=== PATIENT | female | born 1975 | race Hispanic/Latino ===

== ENCOUNTER 2021-09-03 13:08 | Emergency (ER) | payer OTHER, SELFPAY ==
[2021-09-03 13:29] LABS: Absolute Lymphocytes (CBC) 1.8 K/uL (0.7-4.9); Hematocrit 45.3 % (36.0-45.0); Lymphocytes % 25.3 % (15.3-44.8); MPV 9.8 fL (7.6-11.3); RBC Red Blood Cell Count 5.09 M/uL (3.86-4.86)
[2021-09-03 13:48] LABS: ALT/SGPT 188 U/L (12-78); Albumin 4.1 g/dL (3.4-5.0); Alkaline Phosphatase 155 U/L (45-117); BUN Blood Urea Nitrogen 14 mg/dL (7-18); Bicarbonate 28 mmol/L (21-32); Bilirubin Total 0.4 mg/dL (0.2-1.0); Glucose Level 222 mg/dL (74-106); Protein, Total 8.7 g/dL (6.4-8.2); Sodium Level 137 mmol/L (136-145)
[2021-09-03 13:49] LABS: AST/SGOT 68 U/L (15-37); Bilirubin Direct < 0.1 mg/dL (0-0.2); Potassium 3.7 mmol/L (3.5-5.1); Troponin High Sensitivity < 3.0 pg/mL (<58.9)
--- NOTE | 2021-09-03 14:05 | EDPHYS ---
Physician Documentation [facility] Name: Raysa Westbrook Age: 46 yrs Sex: Female : 1975 Arrival Date: 09/03/2021 Time: 13:11 Bed 15 Private MD: ED Physician Eli Mccann HPI: 09/03 14:01 This 46 yrs old Female presents to ER via Ambulatory with complaints of Chest ma2 Pain. 14:01 Patient has chest wall pain on breathing right-sided for 1 week is been constant worse ma2 when she takes deep breath cough or twister chest, patient denies heart issues, denies vomiting fever or diarrhea, no abdominal pain. Historical: - Allergies: 13:17 No Known Allergies; ph - Home Meds: 13:25 amlodipine 10 mg tab 1 tab once daily [Active]; hydrochlorothiazide 25 mg Oral tab 1 ww tab once daily [Active]; - PMHx: 13:25 Hypertensive disorder; ww - PSHx: 13:25 section; ww - Immunization history:: Adult Immunizations up to date. - Social history:: Smoking status: Patient denies any tobacco usage or history of. - Family history:: not pertinent. ROS: 14:01 Constitutional: Negative for fever, chills, and weight loss. ma2 14:01 All other systems are negative. Exam: 14:01 Constitutional: This is a well developed, well nourished patient who is awake, alert, ma2 and in no acute distress. Head/Face: Normocephalic, atraumatic. Eyes: Pupils equal round and reactive to light, extra-ocular motions intact. Lids and lashes normal. Conjunctiva and sclera are non-icteric and not injected. Cornea within normal limits. Periorbital areas with no swelling, redness, or edema. ENT: Nares patent. No nasal discharge, no septal abnormalities noted. Tympanic membranes are normal and external auditory canals are clear. Oropharynx with no redness, swelling, or masses, exudates, or evidence of obstruction, uvula midline. Mucous membranes moist. Neck: Trachea midline, no thyromegaly or masses palpated, and no cervical lymphadenopathy. Supple, full range of motion without nuchal rigidity, or vertebral point tenderness. No Meningismus. Chest/axilla: Right-sided chest wall pain reproducible on exam, otherwise normal chest wall appearance and motion. Nontender with no deformity. No lesions are appreciated. Cardiovascular: Regular rate and rhythm with a normal S1 and S2. No gallops, murmurs, or rubs. Normal PMI, no JVD. No pulse deficits. Respiratory: Lungs have equal breath sounds bilaterally, clear to auscultation and percussion. No rales, rhonchi or wheezes noted. No increased work of breathing, no retractions or nasal flaring. Abdomen/GI: Soft, non-tender, with normal bowel sounds. No distension or tympany. No guarding or rebound. No evidence of tenderness throughout. Back: No spinal tenderness. No costovertebral tenderness. Full range of motion. Skin: Warm, dry with normal turgor. Normal color with no rashes, no lesions, and no evidence of cellulitis. MS/ Extremity: Pulses equal, no cyanosis. Neurovascular intact. Full, normal range of motion. Neuro: Awake and alert, GCS 15, oriented to person, place, time, and situation. Cranial nerves II-XII grossly intact. Motor strength 5/5 in all extremities. Sensory grossly intact. Cerebellar exam normal. Normal gait. Vital Signs: 13:23 BP 165 / 108; Pulse 127; Resp 28; Pulse Ox 99% on R/A; Weight 62.6 kg; Height 5 ft. 0 ww in. (152.40 cm); Pain 2/10; 14:13 BP 155 / 99; Pulse 101; Resp 18; Pulse Ox 96% on R/A; ph 15:47 BP 111 / 79; Pulse 96; Resp 16; Pulse Ox 97% on R/A; ph 17:00 BP 142 / 87; Pulse 98; Resp 18; Pulse Ox 99% on R/A; ph 18:00 BP 146 / 95; Pulse 101; Resp 16; Temp 97.9; Pulse Ox 100% on R/A; ph 13:23 Body Mass Index 26.95 (62.60 kg, 152.40 cm) ww MDM: 13:18 Patient medically screened. ma2 14:01 Differential diagnosis: esophagitis, gastritis, gastroesophageal reflux disease (GERD), ma2 pneumothorax. 14:04 Data reviewed: vital signs, nurses notes. Counseling: I had a detailed discussion with ma2 the patient and/or guardian regarding: the historical points, exam findings, and any diagnostic results supporting the discharge/admit diagnosis, the presence of at least one elevated blood pressure reading (>120/80) during this emergency department visit, the need for outpatient follow up. 09/03 13:19 Order name: Basic Metabolic Panel; Complete Time: 14:10 09/03 13:19 Order name: CBC with Diff; Complete Time: 14:10 09/03 13:19 Order name: LFT's; Complete Time: 14:10 09/03 13:19 Order name: Magnesium; Complete Time: 14:10 09/03 13:19 Order name: Troponin HS; Complete Time: 14:10 09/03 13:19 Order name: XRAY Chest (1 view); Complete Time: 14:57 09/03 13:19 Order name: EKG; Complete Time: 13:20 09/03 13:19 Order name: Cardiac monitoring; Complete Time: 13:21 09/03 13:19 Order name: EKG - Nurse/Tech; Complete Time: 13:21 09/03 13:19 Order name: IV Saline Lock; Complete Time: 13:31 09/03 13:19 Order name: Labs collected and sent; Complete Time: 13:21 09/03 13:19 Order name: O2 Per Protocol; Complete Time: 13:21 09/03 13:19 Order name: O2 Sat Monitoring; Complete Time: 13:21 ma Administered Medications: 14:21 Drug: Ativan (LORazepam) 1 mg Route: IVP; Site: right antecubital; ph 15:30 Follow up: Response: No adverse reaction ph Disposition Summary: 09/03/21 14:04 Discharge Ordered Location: Home ma2 Condition: Stable ma2 Diagnosis - Chest pain on breathing ma2 Followup: ma2 - With: Private Physician - When: Tomorrow - Reason: If symptoms return, Continuance of care Discharge Instructions: - Discharge Summary Sheet ma2 - Chest Wall Pain ma2 Forms: - Medication Reconciliation Form ma2 - Thank You Letter ma2 - Work release form ph - Antibiotic Education ma2 - Prescription Opioid Use ma2 Prescriptions: - Diclofenac Sodium 75 mg Oral Tablet Sustained Release - take 1 tablet by ORAL route 2 times per day; 30 tablet; Refills: 0, Product ma2 Selection Permitted Signatures: Dispatcher [employer] Early, RN RN Eli Mccann MD MD ma2 Gay Butler RN RN
--- NOTE | 2021-09-03 14:05 | ER ---
Nurse's Notes [facility] Name: Raysa Westbrook Age: 46 yrs Sex: Female : 1975 Arrival Date: 09/03/2021 Time: 13:11 Bed 15 Private MD: Diagnosis: Chest pain on breathing Presentation: 09/03 13:23 Chief complaint: Patient states: Saw her physician on Saturday for her high blood ww pressure and gave her some medicine. Today she started having chest pain and yesterday just felt ill. Coronavirus screen: Vaccine status: Patient reports receiving the 2nd dose of the covid vaccine. Client denies travel out of the [place] in the last 14 days. Ebola Screen: Patient denies travel to an Ebola-affected area in the 21 days before illness onset. Initial Sepsis Screen: Does the patient meet any 2 criteria? No. Patient's initial sepsis screen is negative. Does the patient have a suspected source of infection? No. Patient's initial sepsis screen is negative. Risk Assessment: Do you want to hurt yourself or someone else? Patient reports no desire to harm self or others. Onset of symptoms was September 03, 2021. 13:23 Method Of Arrival: Ambulatory ww 13:23 Acuity: FIDEL 3 ww Triage Assessment: 13:25 General: Appears well developed, well nourished, Behavior is anxious, crying. Pain: ww Complains of pain in xiphoid area and mid-sternal area. Neuro: Level of Consciousness is awake, alert, obeys commands, Oriented to person, place, time, situation, Moves all extremities. Gait is steady, Speech is normal. Cardiovascular: Capillary refill < 3 seconds Patient's skin is warm and dry. Rhythm is sinus tachycardia Chest pain quality is pressure, is located in substernal area. Respiratory: Airway is patent Respiratory effort is even, unlabored, Respiratory pattern is regular, symmetrical. GI: No signs and/or symptoms were reported involving the gastrointestinal system. Derm: Skin is intact, is healthy with good turgor. Historical: - Allergies: 13:17 No Known Allergies; ph - Home Meds: 13:25 amlodipine 10 mg tab 1 tab once daily [Active]; hydrochlorothiazide 25 mg Oral tab 1 ww tab once daily [Active]; - PMHx: 13:25 Hypertensive disorder; ww - PSHx: 13:25 section; ww - Immunization history:: Adult Immunizations up to date. - Social history:: Smoking status: Patient denies any tobacco usage or history of. - Family history:: not pertinent. Screenin:17 Abuse screen: Denies threats or abuse. Denies injuries from another. Nutritional ph screening: No deficits noted. Tuberculosis screening: No symptoms or risk factors identified. Fall Risk None identified. Assessment: 13:29 General: Appears in no apparent distress. well groomed, Behavior is cooperative, ph appropriate for age, anxious, crying, Reports fatigue for 1-2 days, Denies fever, chills. Pain: Complains of pain in mid-sternal area Pain does not radiate. Pain began 2-3 days ago. Neuro: Level of Consciousness is awake, alert, obeys commands, Oriented to person, place, time, situation, Reports dizziness. Cardiovascular: Reports chest pain, fatigue, lightheadedness, shortness of breath, Capillary refill < 3 seconds in bilateral fingers Patient's skin is warm and dry. Rhythm is sinus tachycardia Chest pain is located in substernal area. Respiratory: Airway is patent Respiratory effort is even, unlabored. Derm: Skin is intact, Skin is pink, warm \T\ dry. Musculoskeletal: Circulation, motion, and sensation intact. Range of motion: intact in all extremities. 14:30 Reassessment: Patient appears in no apparent distress at this time. Patient and/or ph family updated on plan of care and expected duration. Pain level reassessed. Patient is alert, oriented x 3, equal unlabored respirations, skin warm/dry/pink. Pt remains anxious but reports that she is relieved that there were no cardiac findings causing her chest pain, IV ativan given per provider order, pt states that drove herself to the ED and does not have anyone to pick her up at this time, will continue to monitor pt and d/c when awake and alert. 15:30 Reassessment: Patient appears in no apparent distress at this time. Patient and/or ph family updated on plan of care and expected duration. Pain level reassessed. Pt asleep w/ equal and unlabored respirations, heart rate down from 105 to 90 bpm, VSS, will continue to monitor,. 16:25 Reassessment: Patient appears in no apparent distress at this time. Patient and/or ph family updated on plan of care and expected duration. Pain level reassessed. Pt states that symptoms have improved, however she remains drowsy after IV ativan, does not currently have a ride home, will continue to monitor and d/c when pt is more awake and alert. 18:35 Reassessment: Patient appears in no apparent distress at this time. Patient and/or ph family updated on plan of care and expected duration. Pain level reassessed. Patient is alert, oriented x 3, equal unlabored respirations, skin warm/dry/pink. Son at bedside, pt d/c home. Vital Signs: 13:23 BP 165 / 108; Pulse 127; Resp 28; Pulse Ox 99% on R/A; Weight 62.6 kg; Height 5 ft. 0 ww in. (152.40 cm); Pain 2/10; 14:13 BP 155 / 99; Pulse 101; Resp 18; Pulse Ox 96% on R/A; ph 15:47 BP 111 / 79; Pulse 96; Resp 16; Pulse Ox 97% on R/A; ph 17:00 BP 142 / 87; Pulse 98; Resp 18; Pulse Ox 99% on R/A; ph 18:00 BP 146 / 95; Pulse 101; Resp 16; Temp 97.9; Pulse Ox 100% on R/A; ph 13:23 Body Mass Index 26.95 (62.60 kg, 152.40 cm) ED Course: 13:11 Patient arrived in ED. ds1 13:15 Suma Schaeffer, RN is Primary Nurse. ph 13:17 Patient maintains SpO2 saturation greater than 95% on room air. ph 13:18 Eli Mccann MD is Attending Physician. ma2 13:18 Kyle Li NP is PHCP. pm1 13:18 Patient has correct armband on for positive identification. Placed in gown. Bed in low ph position. Call light in reach. Side rails up X 1. education professional on. Pulse ox on. NIBP on. Door closed. Noise minimized. Warm blanket given. 13:18 Arm band placed on Patient placed in an exam room, on a stretcher. ph 13:23 EKG done, by ED staff, reviewed by Eli Mccann MD. mb7 13:25 Triage completed. ww 13:27 Inserted saline lock: 20 gauge in right antecubital area, using aseptic technique. ww Blood collected. 14:18 XRAY Chest (1 view) In Process Unspecified. EDMS 18:54 No provider procedures requiring assistance completed. IV discontinued, intact, ph bleeding controlled, No redness/swelling at site. Pressure dressing applied. Administered Medications: 14:21 Drug: Ativan (LORazepam) 1 mg Route: IVP; Site: right antecubital; ph 15:30 Follow up: Response: No adverse reaction ph Outcome: 14:04 Discharge ordered by . bernadette 18:54 Patient left the ED. ph 18:54 Discharged to home ambulatory, with family. ph 18:54 Condition: good 18:54 Discharge instructions given to patient, family, Instructed on discharge instructions, follow up and referral plans. medication usage, Demonstrated understanding of instructions, follow-up care, medications, Prescriptions given X 1. Signatures: Dispatcher [employer] [facility] Lauryn Donis ds1 Suma Schaeffer RN RN ph Kyle Li, MUNA PHYSICIST NUCLEAR pm1 Eli Mccann MD MD ma2 Breneman, Mary mb7 Gay Butler RN RN ww
[2021-09-03] MEDS ORDERED: LORazepam 2 MG/ML VIAL ONE (14:20)
--- NOTE | 2021-09-03 14:21 | RAD REPORT ---
EXAM DESCRIPTION: RAD - Chest Single View - 09/03/2021 2:16 pm CLINICAL HISTORY: CHEST PAIN COMPARISON: None available TECHNIQUE: AP portable chest image was obtained 09/03/2021 2:16 pm . FINDINGS: Lungs are clear. Heart and vasculature are normal. No measurable pleural effusion and no p neumothorax. No acute bony abnormality seen. No acute aortic findings suspected. IMPRESSION: No acute cardiopulmonary process.
[2021-09-03 19:13] VITALS: BP 111/79; O2SAT 97
== END 2021-09-03 18:54 | disposition home or self-care (01) ==
LOC: ER 13:08
DX: R07.1 Chest pain on breathing (principal); I10 Essential (primary) hypertension
CPT/HCPCS: 36415; 71045; 80048; 80076; 83735; 84484; 85025; 93005; 96374; 99285